=== PATIENT | male | born 1970 | race Caucasian/White ===

== ENCOUNTER 2017-09-17 16:06 | Emergency (ER) | payer MEDICAID ==
[~2017-09-17] VITALS: Ht 185.4 cm; Wt 90.0 kg
[~2017-09-17 16:06] MED LIST: CYCL-36 PO; LORTA5
[2017-09-17 16:35] VITALS: BP 150/91; PULSE 75; RESP 20; TEMP 98.9; O2SAT 98
[2017-09-17 16:52] VITALS: BP 162/86; PULSE 71; RESP 17; O2SAT 98
[2017-09-17] MEDS ORDERED: SODIUM CHLOR 0.9% 1000 ML INJ 1,000 ML IV SCH (17:06)
[2017-09-17] MEDS ORDERED: ONDANSETRON ODT 4 MG TAB PO ONE (17:15)
[2017-09-17] MEDS ORDERED: KETOROLAC TROMETHAMINE 30 MG/ML (IVP) VIAL IV PUSH ONE (17:15)
[2017-09-17] MEDS ORDERED: MORPHINE SULFATE 4 MG/ML INJ IV PUSH ONE (17:15)
[2017-09-17] MEDS ORDERED: SODIUM CHLORIDE 0.9% FLUSH 10 ML FLUSH IV FLUSH PRN (17:15)
--- NOTE | 2017-09-17 17:16 | PD ---
HPI Chief Complaint: Abdominal Pain Time Seen by Provider: 16:55 Travel History International Travel<30 days: No Contact w/Intl Traveler<30days: No Traveled to known affect area: No History of Present Illness HPI 47-year-old male complaining of severe left flank pain right upper quadrant abdominal pain. Patient states the pain started last night. Patient states the pain is sharp pain severe pain started on the left flank area with radiation of the left side abdomen. Patient states that he has intermittent nausea vomiting with the pain. Patient denies any fever chills. Patient states that he has occasional dysuria. Patient denies any history kidney stone in the past. Patient was seen at urgent care center today and had outpatient CT scan abdomen pelvis done at [facility]. CT of the abdomen and pelvis show 3 mm stone mid left ureter with moderate hydronephrosis and hydroureter and finding of likely forniceal rupture with significant retroperitoneal fluid. Patient was advised to go to the emergency room for evaluation. On a scale of 1-10 the pain is a 10. PFSH Past Medical History Medical History: Denies Significant Hx Past Surgical History Surgical History: No Previous Surgery Social History Alcohol Use: No Tobacco Use: No Substance Use: No Allergies-Medications (Allergen,Severity, Reaction): Coded Allergies: No Known Allergies (Verified Adverse Reaction, Unknown, 09/17/17) Reported Meds & Prescriptions Reported Meds & Active Scripts Active Zofran Odt (Ondansetron Odt) 4 Mg Tab 4 Mg SL Q6HR PRN [place] (Hydrocodone-Acetaminophen) 5 Mg-325 Mg Tab 1 Tab PO Q6H PRN Review of Systems General / Constitutional: No: Fever Eyes: No: Visual changes HENT: No: Headaches Cardiovascular: No: Chest Pain or Discomfort Respiratory: No: Shortness of Breath Gastrointestinal: Positive: Nausea, Vomiting, Abdominal Pain Genitourinary: No: Dysuria Musculoskeletal: No: Pain Skin: No Rash Neurologic: No: Weakness Psychiatric: No: Depression Endocrine: No: Polydipsia Hematologic/Lymphatic: No: Easy Bruising Physical Exam Narrative GENERAL: Well-nourished, well-developed patient. SKIN: Focused skin assessment warm/dry. HEAD: Normocephalic. EYES: No scleral icterus. No injection or drainage. NECK: Supple, trachea midline. No JVD or lymphadenopathy. CARDIOVASCULAR: Regular rate and rhythm without murmurs, gallops, or rubs. RESPIRATORY: Breath sounds equal bilaterally. No accessory muscle use. GASTROINTESTINAL: Abdomen soft, nondistended. Patient has moderate tenderness on palpation left upper quadrant of the abdomen. No rebound tenderness. No mass. MUSCULOSKELETAL: No cyanosis, or edema. BACK: Patient has moderate tenderness in palpation left flank area. Neurologic exam normal. Data Data Last Documented VS Vital Signs Date Time Temp Pulse Resp B/P (MAP) Pulse Ox O2 Delivery O2 Flow Rate FiO2 09/17/17 19:24 64 16 110/71 (84) 98 Room Air 09/17/17 16:35 98.9 Orders Orders Complete Blood Count With Diff (09/17/17 17:06) Comprehensive Metabolic Panel (09/17/17 17:06) Prothrombin Time / Inr (Pt) (09/17/17 17:06) Act Partial Throm Time (Ptt) (09/17/17 17:06) Urinalysis - C+S If Indicated (09/17/17 17:06) Iv Access Insert/Monitor (09/17/17 17:06) Ecg Monitoring (09/17/17 17:06) Oximetry (09/17/17 17:06) Sodium Chlor 0.9% 1000 Ml Inj (Ns 1000 M (09/17/17 17:06) Sodium Chloride 0.9% Flush (Ns Flush) (09/17/17 17:15) Morphine Inj (Morphine Inj) (09/17/17 17:15) Ondansetron Odt (Zofran Odt) (09/17/17 17:15) Ketorolac Inj (Toradol Inj) (09/17/17 17:15) Ed Discharge Order (09/17/17 19:41) Labs Laboratory Tests Test 09/17/17 17:15 09/17/17 18:15 White Blood Count 10.6 TH/MM3 Red Blood Count 5.31 MIL/MM3 Hemoglobin 16.0 GM/DL Hematocrit 48.1 % Mean Corpuscular Volume 90.6 FL Mean Corpuscular Hemoglobin 30.2 PG Mean Corpuscular Hemoglobin Concent 33.4 % Red Cell Distribution Width 13.9 % Platelet Count 233 TH/MM3 Mean Platelet Volume 10.0 FL Neutrophils (%) (Auto) 80.1 % Lymphocytes (%) (Auto) 11.5 % Monocytes (%) (Auto) 8.3 % Eosinophils (%) (Auto) 0.0 % Basophils (%) (Auto) 0.1 % Neutrophils # (Auto) 8.5 TH/MM3 Lymphocytes # (Auto) 1.2 TH/MM3 Monocytes # (Auto) 0.9 TH/MM3 Eosinophils # (Auto) 0.0 TH/MM3 Basophils # (Auto) 0.0 TH/MM3 CBC Comment DIFF FINAL Differential Comment Prothrombin Time 10.8 SEC Prothromb Time International Ratio 1.1 RATIO Activated Partial Thromboplast Time 25.0 SEC Blood Urea Nitrogen 16 MG/DL Creatinine 1.42 MG/DL Random Glucose 113 MG/DL Total Protein 7.6 GM/DL Albumin 4.1 GM/DL Calcium Level 9.4 MG/DL Alkaline Phosphatase 89 U/L Aspartate Amino Transf (AST/SGOT) 33 U/L Alanine Aminotransferase (ALT/SGPT) 50 U/L Total Bilirubin 0.9 MG/DL Sodium Level 139 MEQ/L Potassium Level 4.2 MEQ/L Chloride Level 101 MEQ/L Carbon Dioxide Level 28.6 MEQ/L Anion Gap 9 MEQ/L Estimat Glomerular Filtration Rate 53 ML/MIN Urine Color YELLOW Urine Turbidity CLEAR Urine pH 7.0 Urine Specific [place] GREATER THAN 1.050 Urine Protein 100 mg/dL Urine Glucose (UA) NEG mg/dL Urine Ketones 150 mg/dL Urine Occult Blood MOD Urine Nitrite NEG Urine Bilirubin NEG Urine Urobilinogen LESS THAN 2.0 MG/DL Urine Leukocyte Esterase NEG Urine RBC 42 /hpf Urine WBC 2 /hpf Urine Bacteria OCC /hpf Microscopic Urinalysis Comment CULT NOT INDICATED MDM Medical Decision Making Medical Screen Exam Complete: Yes Emergency Medical Condition: Yes Interpretation(s) 1933 PM. CBC within normal limits. Creatinine 1.42. GFR 53. UA positive at 42 RBCs. Differential Diagnosis Differential diagnosis including nephrolithiasis, pyelonephritis. Narrative Course 47-year-old male with severe left flank pain level quadrant abdominal pain. CT shows nephrolithiasis with possible forniceal rupture and retroperitoneal fluid. Diagnosis Primary Impression: Nephrolithiasis Patient Instructions: General Instructions Additional Instructions: Take medication as needed for pain. Follow-up with urologist. Return if intractable pain, fever, persistent vomiting. Med/Other Pt SpecificInfo: Prescription(s) given Scripts Ondansetron Odt (Zofran Odt) 4 Mg Tab 4 MG SL Q6HR Y for Nausea/Vomiting, #12 TAB 0 Refills Prov: Humble Faulkner MD 09/17/17 Hydrocodone-Acetaminophen ([place]) 5 Mg-325 Mg Tab 1 TAB PO Q6H Y for PAIN, #12 TAB 0 Refills Prov: Humble Faulkner MD 09/17/17 Disposition: 01 DISCHARGE HOME Condition: Stable Humble Faulkner MD Sep 17, 2017 17:16
[2017-09-17 18:23] LABS: INTERNATIONAL NORMALIZED RATIO 1.1 RATIO; PROTHROMBIN TIME - PATIENT 10.8 SEC (9.8-11.6)
[2017-09-17 18:42] LABS: ALBUMIN 4.1 GM/DL (3.4-5.0); AST (GOT) 33 U/L (15-37); AUTOMATED NEUTROPHIL # 8.5 TH/MM3 (1.8-7.7); BASOPHIL % 0.1 % (0.0-2.0); BICARBONATE 28.6 MEQ/L (21.0-32.0); BLOOD UREA NITROGEN 16 MG/DL (7-18); CALCIUM 9.4 MG/DL (8.5-10.1); CHLORIDE 101 MEQ/L (98-107); CREATININE 1.42 MG/DL (0.60-1.30); GLOMERULAR FILTRATION RATE 53 ML/MIN (>89); GLUCOSE,RANDOM 113 MG/DL (74-106); HEMATOCRIT 48.1 % (39.0-51.0); LYMPH % 11.5 % (9.0-44.0); LYMPHOCYTE # 1.2 TH/MM3 (1.0-4.8); MEAN CELL VOLUME 90.6 FL (80.0-100.0); MEAN CORPUSCULAR HEMOGLOBIN 30.2 PG (27.0-34.0); MEAN CORPUSCULAR HGB CONC 33.4 % (32.0-36.0); MONO % 8.3 % (0.0-8.0); MONOCYTE # 0.9 TH/MM3 (0-0.9); NEUT % 80.1 % (16.0-70.0); PLATELET COUNT 233 TH/MM3 (150-450); RED BLOOD COUNT 5.31 MIL/MM3 (4.50-5.90); RED CELL DISTRIBUTION WIDTH 13.9 % (11.6-17.2); SODIUM (NA) 139 MEQ/L (136-145); WHITE BLOOD COUNT 10.6 TH/MM3 (4.0-11.0)
[2017-09-17 18:44] LABS: ALT (GPT) 50 U/L (12-78)
[2017-09-17 18:46] LABS: ALKALINE PHOSPHATASE 89 U/L (45-117); TOTAL BILIRUBIN ADULT 0.9 MG/DL (0.2-1.0); TOTAL PROTEIN 7.6 GM/DL (6.4-8.2)
[2017-09-17 19:24] VITALS: BP 110/71; PULSE 64; RESP 16; O2SAT 98
[2017-09-17 19:29] LABS: BACTERIA, URINE OCC /hpf; BILIRUBIN, URINE NEG (NEG); BLOOD, URINE MOD (NEG); GLUCOSE,URINE NEG (NEG); KETONE, URINE 150 mg/dL (NEG); NITRITE,URINE NEG (NEG); URINE COLOR YELLOW (YELLW/STRAW); URINE LEUKOCYTE ESTERASE NEG (NEG)
[2017-09-17] MEDS ORDERED: ZOFR4TAB3 SL (19:39)
[2017-09-17] MEDS ORDERED: NORC5TAB PO (19:39)
== END 2017-09-17 19:55 | disposition home or self-care (01) ==
LOC: NEPE 16:06
DX: N13.2 Hydronephrosis with renal and ureteral calculous obstruction (principal)
CPT/HCPCS: 80053; 81001; 85025; 85610; 85730; 96361; 96374; 96375; 99284; J1885; J2270; J7030

== ENCOUNTER 2017-09-20 19:30 | Inpatient (IN) | payer MEDICAID ==
[~2017-09-20] VITALS: Ht 185.4 cm; Wt 88.9 kg
[~2017-09-20 19:30] MED LIST changes: +NORC5TAB PO; +ZOFR4TAB3 SL
[2017-09-20 19:54] VITALS: BP 166/96; PULSE 66; RESP 16; TEMP 99; O2SAT 99
--- NOTE | 2017-09-20 22:02 | PD ---
HPI Chief Complaint: Flank/Kidney Pain Time Seen by Provider: 21:44 Travel History International Travel<30 days: No Contact w/Intl Traveler<30days: No Traveled to known affect area: No History of Present Illness HPI 47-year-old male with no significant medical history presents emergency department for evaluation of worsening left flank pain with associated nausea and vomiting. Patient was seen and evaluated on the . He had had outpatient imaging at [place] that showed a 3 mm stone mid left ureter with moderate hydronephrosis and hydroureter and finding of likely forniceal rupture with significant retroperitoneal fluid. Lab work was done at that time in the emergency department. He was without acute concern and patient was discharged home with pain control. He states his pain is only gotten worse. It radiates to his testicle. He denies any fever or chills. He states he has been able to void but he feels is decreased secondary to decreased intake. He has no other symptoms to report. [facility] Past Medical History Medical History: Denies Significant Hx Diminished Hearing: No Past Surgical History Surgical History: No Previous Surgery Social History Alcohol Use: No Tobacco Use: No Substance Use: No Allergies-Medications (Allergen,Severity, Reaction): Coded Allergies: No Known Allergies (Verified Adverse Reaction, Unknown, 09/17/17) Reported Meds & Prescriptions Reported Meds & Active Scripts Active Zofran Odt (Ondansetron Odt) 4 Mg Tab 4 Mg SL Q6HR PRN [place] (Hydrocodone-Acetaminophen) 5 Mg-325 Mg Tab 1 Tab PO Q6H PRN Review of Systems Except as stated in HPI: all other systems reviewed are Neg Physical Exam Narrative GENERAL: Well-nourished male patient in no acute distress SKIN: Focused skin assessment warm/dry. HEAD: Atraumatic. Normocephalic. EYES: Pupils equal and round. No scleral icterus. No injection or drainage. ENT: No nasal bleeding or discharge. Mucous membranes pink and moist. NECK: Trachea midline. No JVD. CARDIOVASCULAR: Regular rate and rhythm. No murmur appreciated. RESPIRATORY: No accessory muscle use. Clear to auscultation. Breath sounds equal bilaterally. GASTROINTESTINAL: Abdomen soft, nondistended hepatic and splenic margins not palpable. MUSCULOSKELETAL: No obvious deformities. No clubbing. No cyanosis. No edema. Left CVA tenderness NEUROLOGICAL: Awake and alert. No obvious cranial nerve deficits. Motor grossly within normal limits. Normal speech. PSYCHIATRIC: Appropriate mood and affect; insight and judgment normal. Data Data Last Documented VS Vital Signs Date Time Temp Pulse Resp B/P (MAP) Pulse Ox O2 Delivery O2 Flow Rate FiO2 09/20/17 19:54 99.0 66 16 166/96 (119) 99 Orders Orders Iv Access Insert/Monitor (09/20/17 22:01) Complete Blood Count With Diff (09/20/17 22:01) Basic Metabolic Panel (Bmp) (09/20/17 22:01) Urinalysis - C+S If Indicated (09/20/17 22:01) Ketorolac Inj (Toradol Inj) (09/20/17 22:15) Sodium Chlor 0.9% 1000 Ml Inj (Ns 1000 M (09/20/17 22:15) Ct Abd/Pel W/O Iv Contrast (09/20/17 ) Morphine Inj (Morphine Inj) (09/20/17 23:00) Ondansetron Odt (Zofran Odt) (09/20/17 23:00) Labs Laboratory Tests Test 09/20/17 22:16 White Blood Count 9.0 TH/MM3 Red Blood Count 4.73 MIL/MM3 Hemoglobin 14.5 GM/DL Hematocrit 42.8 % Mean Corpuscular Volume 90.6 FL Mean Corpuscular Hemoglobin 30.6 PG Mean Corpuscular Hemoglobin Concent 33.8 % Red Cell Distribution Width 13.5 % Platelet Count 196 TH/MM3 Mean Platelet Volume 9.2 FL Neutrophils (%) (Auto) 77.1 % Lymphocytes (%) (Auto) 13.3 % Monocytes (%) (Auto) 7.7 % Eosinophils (%) (Auto) 1.2 % Basophils (%) (Auto) 0.7 % Neutrophils # (Auto) 7.0 TH/MM3 Lymphocytes # (Auto) 1.2 TH/MM3 Monocytes # (Auto) 0.7 TH/MM3 Eosinophils # (Auto) 0.1 TH/MM3 Basophils # (Auto) 0.1 TH/MM3 CBC Comment DIFF FINAL Differential Comment MDM Medical Decision Making Medical Screen Exam Complete: Yes Emergency Medical Condition: Yes Medical Record Reviewed: Yes Differential Diagnosis Renal calculi versus renal colic versus UTI versus colitis Narrative Course 47-year-old male presents emergency department for evaluation of worsening left flank pain with associated nausea and vomiting. Patient appears uncomfortable but without distress. He appears nontoxic. He is treated for pain. Laboratory Tests Test 09/20/17 22:16 White Blood Count 9.0 TH/MM3 Red Blood Count 4.73 MIL/MM3 Hemoglobin 14.5 GM/DL Hematocrit 42.8 % Mean Corpuscular Volume 90.6 FL Mean Corpuscular Hemoglobin 30.6 PG Mean Corpuscular Hemoglobin Concent 33.8 % Red Cell Distribution Width 13.5 % Platelet Count 196 TH/MM3 Mean Platelet Volume 9.2 FL Neutrophils (%) (Auto) 77.1 % Lymphocytes (%) (Auto) 13.3 % Monocytes (%) (Auto) 7.7 % Eosinophils (%) (Auto) 1.2 % Basophils (%) (Auto) 0.7 % Neutrophils # (Auto) 7.0 TH/MM3 Lymphocytes # (Auto) 1.2 TH/MM3 Monocytes # (Auto) 0.7 TH/MM3 Eosinophils # (Auto) 0.1 TH/MM3 Basophils # (Auto) 0.1 TH/MM3 CBC Comment DIFF FINAL Differential Comment Blood Urea Nitrogen 13 MG/DL Creatinine 1.27 MG/DL Random Glucose 97 MG/DL Calcium Level 9.0 MG/DL Sodium Level 139 MEQ/L Potassium Level 4.1 MEQ/L Chloride Level 101 MEQ/L Carbon Dioxide Level 26.8 MEQ/L Anion Gap 11 MEQ/L Estimat Glomerular Filtration Rate 61 ML/MIN Patient signed out to my attending physician with urinalysis and can panel pending. Dispositional plan his judgment. Diagnosis Primary Impression: Flank pain Condition: Stable Cammie Mccollum Sep 20, 2017 22:02
[2017-09-20] MEDS ORDERED: KETOROLAC TROMETHAMINE 30 MG/ML (IVP) VIAL IV PUSH ONE (22:15)
[2017-09-20] MEDS ORDERED: SODIUM CHLOR 0.9% 1000 ML INJ 1,000 ML IV ONE (22:15)
[2017-09-20 22:32] LABS: BASOPHIL # 0.1 TH/MM3 (0-0.2); BASOPHIL % 0.7 % (0.0-2.0); EOSINOPHIL # 0.1 TH/MM3 (0-0.4); EOSINOPHIL % 1.2 % (0.0-4.0); HEMATOCRIT 42.8 % (39.0-51.0); HEMOGLOBIN 14.5 GM/DL (13.0-17.0); LYMPH % 13.3 % (9.0-44.0); LYMPHOCYTE # 1.2 TH/MM3 (1.0-4.8); MEAN CELL VOLUME 90.6 FL (80.0-100.0); MEAN CORPUSCULAR HEMOGLOBIN 30.6 PG (27.0-34.0); MEAN CORPUSCULAR HGB CONC 33.8 % (32.0-36.0); MEAN PLATELET VOLUME 9.2 FL (7.0-11.0); MONO % 7.7 % (0.0-8.0); MONOCYTE # 0.7 TH/MM3 (0-0.9); NEUT % 77.1 % (16.0-70.0); PLATELET COUNT 196 TH/MM3 (150-450); RED BLOOD COUNT 4.73 MIL/MM3 (4.50-5.90); RED CELL DISTRIBUTION WIDTH 13.5 % (11.6-17.2)
[2017-09-20 22:49] LABS: BICARBONATE 26.8 MEQ/L (21.0-32.0); CREATININE 1.27 MG/DL (0.60-1.30)
--- NOTE | 2017-09-20 22:51 | RADRPT ---
EXAM DATE: 09/20/2017 10:40 PM EDT AGE/SEX: 47 years / Male INDICATIONS: Left flank pain. CLINICAL DATA: This is the patient's initial encounter. Patient reports that signs and symptoms have been present for 4 - 6 days and indicates a pain score of 7/10. MEDICAL/SURGICAL HISTORY: None. . RADIATION DOSE: 7.44 CTDI (mGy) COMPARISON: No prior exams available for comparison. TECHNIQUE: Multiple contiguous axial images were obtained through the abdomen. Images were obtained using multiple row detector helical technique. Using dose reduction techniques, radiation dose was ke pt as low as reasonably achievable to obtain optimal diagnostic quality images. FINDINGS: There is a 4 mm obstructing calculus in the distal left ureter just above the bladder with mild left- sided hydronephrosis and fairly extensive perinephric and periureteric stranding. There is an additio nal 3 mm nonobstructing calculus in the left kidney as well as left renal cyst. No right-sided renal calculi or obstructive uropathy. Lung bases are clear. No acute findings in the liver, spleen, adrenals or pancreas. No calcified gall stones. No acute bony abnormality. CONCLUSION: 1. Left-sided obstructive uropathy secondary to 4 mm calculus in the distal left ureter with mild le ft-sided hydronephrosis and perinephric and proximal periureteric fluid present. Electronically signed by: Todd Trinidad MD 09/20/2017 10:49 PM EDT
[2017-09-20] MEDS ORDERED: ONDANSETRON ODT 4 MG TAB PO ONE (23:00)
[2017-09-20] MEDS ORDERED: MORPHINE SULFATE 4 MG/ML INJ IV PUSH ONE (23:00)
[2017-09-20 23:05] LABS: BACTERIA, URINE RARE /hpf; BILIRUBIN, URINE NEG (NEG); BLOOD, URINE LARGE (NEG); GLUCOSE,URINE NEG (NEG); KETONE, URINE 20 mg/dL (NEG); MUCUS URINE FEW /lpf (OCC); NITRITE,URINE NEG (NEG); URINE COLOR YELLOW (YELLW/STRAW); URINE LEUKOCYTE ESTERASE NEG (NEG)
[2017-09-21 00:29] VITALS: BP 127/76; PULSE 89; RESP 20; O2SAT 96
[2017-09-21] MEDS ORDERED: LACTULOSE SYRUP 20 GM/30 ML CUP PO PRN (00:30)
[2017-09-21] MEDS ORDERED: SENNOSIDES 8.6 MG TAB PO PRN (00:30)
[2017-09-21] MEDS ORDERED: MAGNESIUM HYDROXIDE SUSP 30 ML CUP PO PRN (00:30)
[2017-09-21] MEDS ORDERED: METOCLOPRAMIDE HCL 10 MG/2 ML VIAL IV PUSH PRN (00:30)
[2017-09-21] MEDS ORDERED: ACETAMINOPHEN 325 MG TAB PO PRN (00:30)
[2017-09-21] MEDS ORDERED: MORPHINE SULFATE 4 MG/ML INJ IV PUSH ONE (00:30)
[2017-09-21] MEDS ORDERED: SODIUM CHLORIDE 0.9% FLUSH 10 ML FLUSH IV FLUSH PRN (00:30)
[2017-09-21] MEDS ORDERED: BISACODYL 10 MG SUPP RECTAL PRN (00:30)
--- NOTE | 2017-09-21 01:02 | HHI.HP ---
HPI Service [facility] Primary Care Physician No Primary Care Physician Admission Diagnosis Obstructiong ureteral calculus Diagnoses: (1) Nephrolithiasis Diagnosis: Principal (2) Hydronephrosis Diagnosis: Principal (3) HTN (hypertension) Diagnosis: Principal Travel History International Travel<30 Days: No Contact w/Intl Traveler <30 Da: No Traveled to Known Affected Are: No History of Present Illness This is a 47-year-old male with no significant PMH who presented to the ER with complaints of left-sided flank pain in addition to nausea and vomiting. Seen at Urgent Care for similar symptoms on 09/17/[address] [facility] which showed 3 mm stone in the mid left ureter, moderate hydronephrosis and hydroureter with likely forniceal rupture, was referred to the ER at that time, s/p analgesics w/ improvement and was d/c'd home. Returns now w/ ongoing c/o flank pain. States pain is severe, constant, 10/10, worse w / movement, no radiating. On arrival, BP 166/96, HR 66, O2 sat 99% on RA, Temp 99.0. CBC unremarkable. Chemistry improved in comparison to previous labs. INR 1.1. UA with hematuria, no acute UTI. CT Abdomen/Pelvis with left-sided obstructive uropathy due to 4 mm stone distal left ureter with mild left-sided hydronephrosis. No previous h/o stones. S/p multiple doses of Morphine in ER w / some improvement. Review of Systems Except as stated in HPI: all other systems reviewed are Neg ROS: 14 point review of systems otherwise negative. Past Family Social History Past Medical History PMH: None Past Surgical History PAST SURGICAL HISTORY: None Allergies: Coded Allergies: No Known Allergies (Verified Allergy, Unknown, 09/21/17) Family History PAST FAMILY HISTORY: Reviewed. No h/o DM or CAD Social History PAST SOCIAL HISTORY: Negative for alcohol, tobacco or drugs per Physical Exam Vital Signs Vital Signs Date Time Temp Pulse Resp B/P (MAP) Pulse Ox O2 Delivery O2 Flow Rate FiO2 09/21/17 00:29 89 20 127/76 (93) 96 Room Air 09/20/17 19:54 99.0 66 16 166/96 (119) 99 Physical Exam PE: GENERAL: Very pleasant middle-aged white male in no acute distress. at bedside HEENT: PERRLA, EOMI. No scleral icterus or conjunctival pallor. No lid lag or facial droop. CARDIOVASCULAR: Regular rate and rhythm. No obvious murmurs to auscultation. No chest tenderness to palpation. RESPIRATORY: No obvious rhonchi or wheezing. Clear to auscultation. Breath sounds equal bilaterally. GASTROINTESTINAL: Abdomen soft, significant left-sided flank tenderness, nondistended. BS normal. MUSCULOSKELETAL: Extremities without clubbing, cyanosis, or edema. No obvious deformities. NEUROLOGICAL: Awake, alert and oriented x4. No focal neurologic deficits. Moving both upper and lower extremities spontaneously. Laboratory Laboratory Tests Test 09/20/17 22:16 White Blood Count 9.0 Red Blood Count 4.73 Hemoglobin 14.5 Hematocrit 42.8 Mean Corpuscular Volume 90.6 Mean Corpuscular Hemoglobin 30.6 Mean Corpuscular Hemoglobin Concent 33.8 Red Cell Distribution Width 13.5 Platelet Count 196 Mean Platelet Volume 9.2 Neutrophils (%) (Auto) 77.1 Lymphocytes (%) (Auto) 13.3 Monocytes (%) (Auto) 7.7 Eosinophils (%) (Auto) 1.2 Basophils (%) (Auto) 0.7 Neutrophils # (Auto) 7.0 Lymphocytes # (Auto) 1.2 Monocytes # (Auto) 0.7 Eosinophils # (Auto) 0.1 Basophils # (Auto) 0.1 CBC Comment DIFF FINAL Differential Comment Urine Color YELLOW Urine Turbidity CLEAR Urine pH 7.0 Urine Specific [place] 1.015 Urine Protein NEG Urine Glucose (UA) NEG Urine Ketones 20 Urine Occult Blood LARGE Urine Nitrite NEG Urine Bilirubin NEG Urine Urobilinogen LESS THAN 2 Urine Leukocyte Esterase NEG Urine RBC 18 Urine WBC 2 Urine Bacteria RARE Urine Mucus FEW Microscopic Urinalysis Comment CULT NOT INDICATED Blood Urea Nitrogen 13 Creatinine 1.27 Random Glucose 97 Calcium Level 9.0 Sodium Level 139 Potassium Level 4.1 Chloride Level 101 Carbon Dioxide Level 26.8 Anion Gap 11 Estimat Glomerular Filtration Rate 61 Result Diagram: 09/20/17221509/20/172215 Caprini VTE Risk Assessment Caprini VTE Risk Assessment: No/Low Risk (score <= 1) Caprini Risk Assessment Model Point Value = 1 Point Value = 2 Point Value = 3 Point Value = 5 Age 41-60 Minor surgery BMI > 25 kg/m2 Swollen legs Varicose veins or History of unexplained or recurrent spontaneous Oral contraceptives or hormone replacement Sepsis (< 1 month) Serious lung disease, including pneumonia (< 1 month) Abnormal pulmonary function Acute myocardial infarction Congestive heart failure (< 1 month) History of inflammatory bowel disease Medical patient at bed rest Age 61-74 Arthroscopic surgery Major open surgery (> 45 min) Laparoscopic surgery (> 45 min) Malignancy Confined to bed (> 72 hours) Immobilizing plaster cast Central venous access Age >= 75 History of VTE Family history of VTE Factor V Leiden Prothrombin [id number] Lupus anticoagulant Anticardiolipin antibodies Elevated serum homocysteine Heparin-induced thrombocytopenia Other congenital or acquired thrombophilia Stroke (< 1 month) Elective arthroplasty Hip, pelvis, or leg fracture Acute spinal cord injury (< 1 month) Prophylaxis Regimen Total Risk Factor Score Risk Level Prophylaxis Regimen 0-1 Low Early ambulation 2 Moderate Order ONE of the following: *Sequential Compression Device (SCD) *Heparin 5000 units SQ BID 3-4 Higher Order ONE of the following medications: *Heparin 5000 units SQ TID *Enoxaparin/Lovenox 40 mg SQ daily (WT < 150 kg, CrCl > 30 mL/min) *Enoxaparin/Lovenox 30 mg SQ daily (WT < 150 kg, CrCl > 10-29 mL/min) *Enoxaparin/Lovenox 30 mg SQ BID (WT < 150 kg, CrCl > 30 mL/min) AND/OR *Sequential Compression Device (SCD) 5 or more Highest Order ONE of the following medications: *Heparin 5000 units SQ TID (Preferred with Epidurals) *Enoxaparin/Lovenox 40 mg SQ daily (WT < 150 kg, CrCl > 30 mL/min) *Enoxaparin/Lovenox 30 mg SQ daily (WT < 150 kg, CrCl > 10-29 mL/min) *Enoxaparin/Lovenox 30 mg SQ BID (WT < 150 kg, CrCl > 30 mL/min) AND *Sequential Compression Device (SCD) Assessment and Plan Problem List: (1) Nephrolithiasis ICD Code: N20.0 - Calculus of kidney Status: Acute (2) Hydronephrosis ICD Code: N13.30 - Unspecified hydronephrosis (3) HTN (hypertension) ICD Code: I10 - Essential (primary) hypertension Assessment and Plan A/P: 1. Renal Stone: outpatient imaging 09/17/17 w/ 3mm stone mid left ureter, c/o ongoing left flank tenderness. CT Abd/Pelvis w/ 4mm left sided obstructive uropathy due to stone in distal left ureter, images reviewed by me. Will Consult Urology for further evaluation/intervention. Flomax, analgesics/ antiemetics as needed. IVF for hydration. 2. Hydronephrosis: secondary to above, CT Abd/Pelvis w/ mild left-sided hydronephrosis due to obstructive uropathy, images reviewed. Continue w/ treatment as above. Monitor I/O. 3. HTN: BP 160's, likely compounded by pain complaints, monitor BP, antihypertensives for BP >180, pain control. 4. DVT Prophylaxis: SCDs/teds. 5. Social work for DC planning as needed. 6. Case discussed at length with the ER physician, lab/record/imaging reviewed by me. Physician Certification 2 Midnight Certification Type: Admission for Inpatient Services Order for Inpatient Services The services are ordered in accordance with Medicare regulations or non- Medicare payer requirements, as applicable. In the case of services not specified as inpatient-only, they are appropriately provided as inpatient services in accordance with the 2-midnight benchmark. Estimated LOS (days): 2 days is the estimated time the patient will need to remain in the hospital, assuming treatment plan goals are met and no additional complications. Post-Hospital Plan: Not yet determined Karina Moser MD Sep 21, 2017 01:02
[2017-09-21] MEDS: SODIUM CHLOR 0.9% 1000 ML INJ 1,000 ML IV SCH ×3 (01:19→21:08)
[2017-09-21 01:43] VITALS: BP 149/76; PULSE 68; RESP 18; TEMP 98.2; O2SAT 95
[2017-09-21] MEDS: MORPHINE SULFATE 4 MG/ML INJ IV PRN ×5 (03:48→19:55)
[2017-09-21] MEDS: TAMSULOSIN HCL 0.4 MG CAP PO SCH (08:29)
[2017-09-21] MEDS: DOCUSATE SODIUM 50 MG/SENNA 8.6 MG TAB PO SCH ×2 (08:29→19:55)
--- NOTE | 2017-09-21 08:40 | HHI.PR ---
Subjective Remarks Follow-up obstructive uropathy. States pain is moving now down to left lower quadrant. Aware to hydrate consult especially several months. Counseled regarding narcotics history of abuse. Objective Vitals Vital Signs Date Time Temp Pulse Resp B/P (MAP) Pulse Ox O2 Delivery O2 Flow Rate FiO2 09/21/17 03:53 18 09/21/17 01:43 98.2 68 18 149/76 (100) 95 09/21/17 00:29 89 20 127/76 (93) 96 Room Air 09/20/17 19:54 99.0 66 16 166/96 (119) 99 I/O 09/20/17 09/20/17 09/20/17 09/21/17 09/21/17 09/21/17 07:00 15:00 23:00 07:00 15:00 23:00 Intake Total 1000 ml Output Total 775 ml Balance 225 ml Intake IV Total 1000 ml Output Urine Total 775 ml # Voids 2 Result Diagram: 09/20/17 2216 09/20/17 2216 Imaging Last Impressions Abdomen/Pelvis CT 09/20/17 0000 Signed Impressions: CONCLUSION: 1. Left-sided obstructive uropathy secondary to 4 mm calculus in the distal le ft ureter with mild left-sided hydronephrosis and perinephric and proximal jocelin ureteric fluid present. Objective Remarks GENERAL: Very pleasant middle-aged white male in no acute distress. HEENT: PERRLA, EOMI. No scleral icterus or conjunctival pallor. No lid lag or facial droop. CARDIOVASCULAR: Regular rate and rhythm. No obvious murmurs to auscultation. No chest tenderness to palpation. RESPIRATORY: No obvious rhonchi or wheezing. Clear to auscultation. Breath sounds equal bilaterally. GASTROINTESTINAL: Abdomen soft, left-sided flank tenderness, nondistended. BS normal. MUSCULOSKELETAL: Extremities without clubbing, cyanosis, or edema. No obvious deformities. NEUROLOGICAL: Awake, alert and oriented x4. No focal neurologic deficits. Moving both upper and lower extremities spontaneously. Procedures none A/P Problem List: (1) Nephrolithiasis ICD Code: N20.0 - Calculus of kidney Status: Acute (2) Hydronephrosis ICD Code: N13.30 - Unspecified hydronephrosis (3) HTN (hypertension) ICD Code: I10 - Essential (primary) hypertension Assessment and Plan 1. Renal Stone: outpatient imaging 09/17/17 w/ 3mm stone mid left ureter, c/o ongoing left flank tenderness. CT Abd/Pelvis w/ 4mm left sided obstructive uropathy due to stone in distal left ureter, images reviewed by me. Stable status post eval recommending medical management. Continue Flomax, analgesics/antiemetics as needed. IVF for hydration. 2. Hydronephrosis: secondary to above, CT Abd/Pelvis w/ mild left-sided hydronephrosis due to obstructive uropathy, images reviewed. Continue w/ treatment as above. Monitor I/O. 3. HTN: BP 160's, likely compounded by pain complaints, monitor BP, antihypertensives for BP >180, pain control. 4. DVT Prophylaxis: SCDs/teds. Discharge Planning Discharge patient to home if pain managed with p.o. medication Condition on discharge: Improved Regular Diet as tolerated Ad Sharmaine activity no driving. Strain all urine Rx written: Flomax Follow-up with primary care physician in Yohan Holloway MD Sep 21, 2017 08:40
[2017-09-21 08:45] VITALS: BP 128/82; PULSE 70; RESP 18; TEMP 97.7; O2SAT 97
[2017-09-21] MEDS: ACETAMINOPHEN/HYDROcodone 325 MG/5 MG TAB PO PRN ×4 (09:30→22:12)
--- NOTE | 2017-09-21 10:46 | PD.CONS ---
HPI Service Urology Consult Requested By Dr. Moser Reason for Consult Left ureteral calculus Primary Care Physician No Primary Care Physician Diagnosis: (1) Nephrolithiasis ICD Code: N20.0 - Calculus of kidney (2) Hydronephrosis ICD Code: N13.30 - Unspecified hydronephrosis (3) HTN (hypertension) ICD Code: I10 - Essential (primary) hypertension History of Present Illness 47-year-old gentleman with no prior urologic history who presented to the emergency room earlier this week with acute onset left flank pain. A CT scan stone protocol was performed that demonstrated a 3 mm mid left ureteral calculus with moderate left hydronephrosis and perinephric stranding consistent with forniceal rupture. Patient was prescribed oral analgesic medication and released. He represented to the emergency room earlier this morning with worsening left-sided flank pain. The CT scan study was repeated which demonstrated migration of the left ureteral calculus down to the distal left ureter. Patient was admitted for analgesic support and a urology consult placed. At the time of consultation, the patient reported that his pain was well managed. He denied hematuria or having any fevers. Patient denied a previous history of nephrolithiasis. Review of Systems Constitutional: DENIES: Fever, Chills Cardiovascular: DENIES: Chest pain Gastrointestinal: COMPLAINS OF: Abdominal pain (Left side) Genitourinary: DENIES: Hematuria Musculoskeletal: COMPLAINS OF: Back pain (Left flank) Except as stated in HPI: all other systems reviewed are Neg Past Family Social History Past Medical History Denies Past Surgical History Denies Reported Medications Refer to EMR Allergies: Coded Allergies: No Known Allergies (Verified Allergy, Unknown, 09/21/17) Active Ordered Medications Refer to EMR Family History Reviewed and noncontributory Social History Denied history of tobacco, alcohol or intravenous drug abuse Physical Exam Vital Signs Date Time Temp Pulse Resp B/P (MAP) Pulse Ox O2 Delivery O2 Flow Rate FiO2 09/21/17 08:45 97.7 70 18 128/82 (97) 97 09/21/17 03:53 18 09/21/17 01:43 98.2 68 18 149/76 (100) 95 09/21/17 00:29 89 20 127/76 (93) 96 Room Air 09/20/17 19:54 99.0 66 16 166/96 (119) 99 Physical Exam GENERAL: This is a well-nourished, well-developed patient, in no apparent distress. SKIN: No rashes, ecchymoses or lesions. Cool and dry. HEAD: Atraumatic. Normocephalic. No temporal or scalp tenderness. EYES: Pupils equal round and reactive. Extraocular motions intact. No scleral icterus. No injection or drainage. ENT: Nose without bleeding, purulent drainage or septal hematoma. Throat without erythema, tonsillar hypertrophy or exudate. Uvula midline. Airway patent. NECK: Trachea midline. No JVD or lymphadenopathy. Supple, nontender, no meningeal signs. CARDIOVASCULAR: Regular rate and rhythm without murmurs, gallops, or rubs. RESPIRATORY: Clear to auscultation. Breath sounds equal bilaterally. No wheezes , rales, or rhonchi. GASTROINTESTINAL: Abdomen soft, non-tender, nondistended. No hepato-splenomegaly , or palpable masses. No guarding. GENITOURINARY: No CVA tenderness, bladder not distended MUSCULOSKELETAL: Extremities without clubbing, cyanosis, or edema. No joint tenderness, effusion, or edema noted. No calf tenderness. Negative Homans sign bilaterally. NEUROLOGICAL: Awake and alert. Cranial nerves II through XII intact. Motor and sensory grossly within normal limits. Five out of 5 muscle strength in all muscle groups. Normal speech. Lab results reviewed: Yes Laboratory Tests Test 09/20/17 22:16 White Blood Count 9.0 Red Blood Count 4.73 Hemoglobin 14.5 Hematocrit 42.8 Mean Corpuscular Volume 90.6 Mean Corpuscular Hemoglobin 30.6 Mean Corpuscular Hemoglobin Concent 33.8 Red Cell Distribution Width 13.5 Platelet Count 196 Mean Platelet Volume 9.2 Neutrophils (%) (Auto) 77.1 Lymphocytes (%) (Auto) 13.3 Monocytes (%) (Auto) 7.7 Eosinophils (%) (Auto) 1.2 Basophils (%) (Auto) 0.7 Neutrophils # (Auto) 7.0 Lymphocytes # (Auto) 1.2 Monocytes # (Auto) 0.7 Eosinophils # (Auto) 0.1 Basophils # (Auto) 0.1 CBC Comment DIFF FINAL Differential Comment Urine Color YELLOW Urine Turbidity CLEAR Urine pH 7.0 Urine Specific [place] 1.015 Urine Protein NEG Urine Glucose (UA) NEG Urine Ketones 20 Urine Occult Blood LARGE Urine Nitrite NEG Urine Bilirubin NEG Urine Urobilinogen LESS THAN 2 Urine Leukocyte Esterase NEG Urine RBC 18 Urine WBC 2 Urine Bacteria RARE Urine Mucus FEW Microscopic Urinalysis Comment CULT NOT INDICATED Blood Urea Nitrogen 13 Creatinine 1.27 Random Glucose 97 Calcium Level 9.0 Sodium Level 139 Potassium Level 4.1 Chloride Level 101 Carbon Dioxide Level 26.8 Anion Gap 11 Estimat Glomerular Filtration Rate 61 Result Diagram: 09/20/17 2216 09/20/17 2216 Personally reviewed images: Yes Imaging Last Impressions Abdomen/Pelvis CT 09/20/17 0000 Signed Impressions: CONCLUSION: 1. Left-sided obstructive uropathy secondary to 4 mm calculus in the distal le ft ureter with mild left-sided hydronephrosis and perinephric and proximal jocelin ureteric fluid present. Assessment and Plan Assessment and Plan Urologic impression: 1. 4 mm left ureteral calculus which has migrated down to the distal ureter 2. Mild left hydronephrosis with forniceal rupture related to passing left ureteral calculus Plan: 1. Continue with analgesic support 2. Flomax 0.4 mg by mouth daily 3. Strain all urine 4. May discharge home once pain adequately controlled with oral medication or if stone passes Omari Santo MD Sep 21, 2017 10:46
[2017-09-21] MEDS: SODIUM CHLORIDE 0.9% FLUSH 10 ML FLUSH IV FLUSH SCH ×2 (10:57→19:55)
[2017-09-21 12:35] VITALS: BP 119/80; PULSE 71; RESP 21; TEMP 97.5; O2SAT 96
[2017-09-21] MEDS ORDERED: TAMS5CAP PO (12:51)
--- NOTE | 2017-09-21 12:52 | HHI.DCPOC ---
Discharge Care Plan Diagnosis: (1) Flank pain Your Health Problems Are: Difficulty with ADL Exercise Tolerance Goals to Promote Your Health * To prevent worsening of your condition and complications * To maintain your health at the optimal level Directions to Meet Your Goals Take your medications as prescribed Follow your dietary instruction Follow activity as directed Keep your appointments as scheduled Take your immunizations and boosters as scheduled If your symptoms worsen call your PCP, if no PCP go to Urgent Care Center or Emergency Room Smoking is Dangerous to Your Health. Avoid second hand smoke Call the 24-hour hour crisis hotline for domestic abuse at Yhoan Holloway MD Sep 21, 2017 12:52
[2017-09-21 16:34] VITALS: BP 119/78; PULSE 73; RESP 18; TEMP 97.5; O2SAT 96
[2017-09-21 20:00] VITALS: BP 123/79; PULSE 78; RESP 18; TEMP 97.1; O2SAT 96
[2017-09-22] VITALS: BP 123/71; PULSE 82; RESP 18; TEMP 97.4; O2SAT 96
[2017-09-22] MEDS: ACETAMINOPHEN/HYDROcodone 325 MG/5 MG TAB PO PRN ×5 (04:37→21:44)
[2017-09-22] MEDS: MORPHINE SULFATE 4 MG/ML INJ IV PRN ×3 (05:37→11:48)
[2017-09-22] MEDS: SODIUM CHLOR 0.9% 1000 ML INJ 1,000 ML IV SCH ×2 (05:40→18:18)
[2017-09-22 07:26] LABS: AUTOMATED NEUTROPHIL # 2.9 TH/MM3 (1.8-7.7); BASOPHIL # 0.1 TH/MM3 (0-0.2); EOSINOPHIL # 0.5 TH/MM3 (0-0.4); HEMATOCRIT 39.6 % (39.0-51.0); HEMOGLOBIN 13.3 GM/DL (13.0-17.0); LYMPH % 28.3 % (9.0-44.0); LYMPHOCYTE # 1.6 TH/MM3 (1.0-4.8); MEAN CELL VOLUME 91.1 FL (80.0-100.0); MEAN CORPUSCULAR HEMOGLOBIN 30.7 PG (27.0-34.0); MEAN CORPUSCULAR HGB CONC 33.7 % (32.0-36.0); MEAN PLATELET VOLUME 9.4 FL (7.0-11.0); MONO % 11.3 % (0.0-8.0); MONOCYTE # 0.6 TH/MM3 (0-0.9); NEUT % 51.4 % (16.0-70.0); PLATELET COUNT 167 TH/MM3 (150-450); RED BLOOD COUNT 4.34 MIL/MM3 (4.50-5.90); RED CELL DISTRIBUTION WIDTH 13.8 % (11.6-17.2); WHITE BLOOD COUNT 5.7 TH/MM3 (4.0-11.0)
[2017-09-22 07:34] LABS: ALT (GPT) 21 U/L (12-78); AST (GOT) 12 U/L (15-37); BICARBONATE 28.4 MEQ/L (21.0-32.0); BLOOD UREA NITROGEN 10 MG/DL (7-18); CALCIUM 8.1 MG/DL (8.5-10.1); CHLORIDE 108 MEQ/L (98-107); CREATININE 0.84 MG/DL (0.60-1.30); GLOMERULAR FILTRATION RATE 98 ML/MIN (>89); GLUCOSE,RANDOM 84 MG/DL (74-106); SODIUM (NA) 143 MEQ/L (136-145)
[2017-09-22 07:35] LABS: ALKALINE PHOSPHATASE 67 U/L (45-117); TOTAL BILIRUBIN ADULT 0.8 MG/DL (0.2-1.0); TOTAL PROTEIN 5.8 GM/DL (6.4-8.2)
[2017-09-22 08:00] VITALS: BP 161/90; PULSE 72; RESP 19; TEMP 97.8; O2SAT 99
[2017-09-22] MEDS: DOCUSATE SODIUM 50 MG/SENNA 8.6 MG TAB PO SCH ×2 (08:45→21:00)
[2017-09-22] MEDS: TAMSULOSIN HCL 0.4 MG CAP PO SCH (08:45)
[2017-09-22] MEDS: SODIUM CHLORIDE 0.9% FLUSH 10 ML FLUSH IV FLUSH SCH ×2 (08:45→21:01)
--- NOTE | 2017-09-22 09:25 | HHI.PR ---
Subjective Remarks F/U urolithiasis. Still requiring IV MSO4 Objective Vitals Vital Signs Date Time Temp Pulse Resp B/P (MAP) Pulse Ox O2 Delivery O2 Flow Rate FiO2 09/22/17 08:00 97.8 72 19 161/90 (113) 99 09/22/17 00:00 97.4 82 18 123/71 (88) 96 09/21/17 20:00 97.1 78 18 123/79 (94) 96 09/21/17 19:02 18 09/21/17 16:34 97.5 73 18 119/78 (92) 96 09/21/17 12:35 97.5 71 21 119/80 (93) 96 I/O 09/21/17 09/21/17 09/21/17 09/22/17 09/22/17 09/22/17 07:00 15:00 23:00 07:00 15:00 23:00 Intake Total 1000 ml 1000 ml 1500 ml Output Total 775 ml 100 ml Balance 225 ml 900 ml 1500 ml Intake Oral 500 ml IV Total 1000 ml 1000 ml 1000 ml Output Urine Total 775 ml 100 ml # Voids 2 Result Diagram: 09/22/17 0546 09/22/17 0546 Imaging Last Impressions Abdomen/Pelvis CT 09/20/17 0000 Signed Impressions: CONCLUSION: 1. Left-sided obstructive uropathy secondary to 4 mm calculus in the distal le ft ureter with mild left-sided hydronephrosis and perinephric and proximal jocelin ureteric fluid present. Objective Remarks GENERAL: Very pleasant middle-aged white male in no acute distress. HEENT: PERRLA, EOMI. No scleral icterus or conjunctival pallor. No lid lag or facial droop. CARDIOVASCULAR: Regular rate and rhythm. No obvious murmurs to auscultation. No chest tenderness to palpation. RESPIRATORY: No obvious rhonchi or wheezing. Clear to auscultation. Breath sounds equal bilaterally. GASTROINTESTINAL: Abdomen soft, left-sided flank tenderness, nondistended. BS normal. MUSCULOSKELETAL: Extremities without clubbing, cyanosis, or edema. No obvious deformities. NEUROLOGICAL: Awake, alert and oriented x4. No focal neurologic deficits. Moving both upper and lower extremities spontaneously. Procedures none A/P Problem List: (1) Nephrolithiasis ICD Code: N20.0 - Calculus of kidney Status: Acute (2) Hydronephrosis ICD Code: N13.30 - Unspecified hydronephrosis (3) HTN (hypertension) ICD Code: I10 - Essential (primary) hypertension Assessment and Plan 1. Renal Stone: outpatient imaging 09/17/17 w/ 3mm stone mid left ureter, c/o ongoing left flank tenderness. CT Abd/Pelvis w/ 4mm left sided obstructive uropathy due to stone in distal left ureter, images reviewed by me. Continues to have significant abdominal pain is scheduling patient for left ureteroscopy with stone extraction tomorrow. C ontinue Flomax, analgesics/ antiemetics as needed. IVF for hydration. 2. Hydronephrosis: secondary to above, CT Abd/Pelvis w/ mild left-sided hydronephrosis due to obstructive uropathy, images reviewed. Continue w/ treatment as above. Monitor I/O. 3. HTN: BP 160's, likely compounded by pain complaints, monitor BP, antihypertensives for BP >180, pain control. 4. DVT Prophylaxis: SCDs/teds. Yohan Holloway MD Sep 22, 2017 09:25
--- NOTE | 2017-09-22 11:35 | HHI.PR ---
Subjective Patient symptoms today Continues to complain of left flank and left lower quadrant pain. Has not passed a stone. Anxious to get resolution. Objective Vital Signs Vital Signs Date Time Temp Pulse Resp B/P (MAP) Pulse Ox O2 Delivery O2 Flow Rate FiO2 09/22/17 10:38 18 09/22/17 08:46 16 09/22/17 08:00 97.8 72 19 161/90 (113) 99 09/22/17 00:00 97.4 82 18 123/71 (88) 96 09/21/17 20:00 97.1 78 18 123/79 (94) 96 09/21/17 16:34 97.5 73 18 119/78 (92) 96 09/21/17 12:35 97.5 71 21 119/80 (93) 96 Intake & Output 09/22/17 09/22/17 06:59 18:59 Intake Total 1500 ml Balance 1500 ml Intake Oral 500 ml IV Total 1000 ml Result Diagram: 09/22/1746 09/22/1746 Objective Remarks Abdomen soft, nondistended, nontender No CVA tenderness Extremities well-perfused, nontender Medications and IVs Current Medications Medications (Trade) Dose Ordered Sig/Veronica Route Start Time Stop Time Status Last Admin Sodium Chloride 1,000 ml @ 100 mls/hr Q10H IV 09/21/17 01:00 09/22/17 05:40 (NS Flush) 2 ml UNSCH PRN IV FLUSH 09/21/17 00:30 (NS Flush) 2 ml BID IV FLUSH 09/21/17 09:00 09/21/17 10:57 (Reglan Inj) 5 mg Q6H PRN IV PUSH 09/21/17 00:30 (Tylenol) 650 mg Q6H PRN PO 09/21/17 00:30 (Celina 5-325 Mg) 1 tab Q4H PRN PO 09/21/17 00:30 09/22/17 09:38 (Morphine Inj) 2 mg Q3H PRN IV 09/21/17 00:45 09/22/17 08:41 (Yeny-Colace) 1 tab BID PO 09/21/17 09:00 09/22/17 08:45 (Milk Of Magnesia Liq) 30 ml Q12H PRN PO 09/21/17 00:30 (Senokot) 17.2 mg Q12H PRN PO 09/21/17 00:30 (Dulcolax Supp) 10 mg DAILY PRN RECTAL 09/21/17 00:30 (Lactulose Liq) 30 ml DAILY PRN PO 09/21/17 00:30 (Flomax) 0.4 mg DAILY PO 09/21/17 09:00 09/22/17 08:45 Assessment and Plan Assessment and Plan Urologic impression: 1. 4 mm left ureteral calculus which has migrated down to the distal ureter 2. Mild left hydronephrosis with forniceal rupture related to passing left ureteral calculus Plan: 1. Continue with analgesic support 2. Flomax 0.4 mg by mouth daily 3. Strain all urine 4. Will place patient on the OR schedule for tomorrow to undergo left ureteroscopy with stone extraction. Omari Santo MD Sep 22, 2017 11:35
[2017-09-22 12:00] VITALS: BP 154/87; PULSE 79; RESP 19; TEMP 98.2; O2SAT 97
[2017-09-22] MEDS: KETOROLAC TROMETHAMINE 30 MG/ML (IVP) VIAL IV PUSH PRN ×2 (14:56→21:01)
[2017-09-22 16:00] VITALS: BP 129/76; PULSE 86; RESP 17; TEMP 97.9; O2SAT 97
[2017-09-22] MEDS ORDERED: LACTATED RINGER'S 1000 ML IV PRN (18:30)
[2017-09-22] MEDS ORDERED: CHLORHEXIDINE GLUCONATE 2 % 1 PACK (2 CLOTHS) TOPICAL PRN (18:30)
[2017-09-22] MEDS ORDERED: SODIUM CHLORID 0.9% 500 ML IV PRN (18:30)
[2017-09-22] MEDS ORDERED: METOPROLOL TARTRATE 25 MG TAB PO PRN (18:30)
[2017-09-22] MEDS ORDERED: POVIDONE IODINE 5% (ANTISEPSIS KIT) 4 APPLICATIONS EACH NARE PRN (18:30)
[2017-09-22 20:00] VITALS: BP 127/75; PULSE 76; RESP 18; TEMP 97.6; O2SAT 98
[2017-09-23] VITALS: BP 127/75; PULSE 80; RESP 18; TEMP 97.9; O2SAT 97
[2017-09-23] MEDS: ACETAMINOPHEN/HYDROcodone 325 MG/5 MG TAB PO PRN ×2 (04:42→20:04)
[2017-09-23] MEDS: SODIUM CHLOR 0.9% 1000 ML INJ 1,000 ML IV SCH ×3 (04:45→17:51)
[2017-09-23 08:00] VITALS: BP 133/85; PULSE 77; RESP 18; TEMP 97.1; O2SAT 97
[2017-09-23] MEDS: SODIUM CHLORIDE 0.9% FLUSH 10 ML FLUSH IV FLUSH SCH ×2 (09:00→20:05)
[2017-09-23] MEDS: TAMSULOSIN HCL 0.4 MG CAP PO SCH (09:11)
[2017-09-23] MEDS: DOCUSATE SODIUM 50 MG/SENNA 8.6 MG TAB PO SCH ×2 (09:12→20:05)
[2017-09-23] MEDS ORDERED: PROPOFOL 200 MG/20 ML AMP IV ONE (10:01)
[2017-09-23] MEDS ORDERED: DEXAMETHASONE SOD PHOS 4 MG/ML VIAL IV ONE (10:01)
[2017-09-23] MEDS ORDERED: LACTATED RINGER'S 1000 ML INJ 1,000 ML IV ONE (10:01)
[2017-09-23] MEDS ORDERED: ePHEDrine/NS 25 MG/5 ML SYRINGE IV ONE (10:01)
[2017-09-23] MEDS ORDERED: ceFAZolin INJ 1,000 MG VIAL IV ONE ×2 (10:01→15:38)
[2017-09-23] MEDS ORDERED: LIDOCAINE HCL 1% PF 5 ML SYRINGE OTHER ONE (10:01)
[2017-09-23] MEDS ORDERED: ONDANSETRON HCL 4 MG/2 ML VIAL IV PUSH ONE (10:01)
[2017-09-23] MEDS ORDERED: ROCURONIUM INJ 50 MG/5 ML SYRINGE IV PUSH ONE (10:01)
--- NOTE | 2017-09-23 10:06 | HHI.PR ---
Subjective Remarks Follow-up obstructive uropathy. Awaiting sx Objective Vitals Vital Signs Date Time Temp Pulse Resp B/P (MAP) Pulse Ox O2 Delivery O2 Flow Rate FiO2 09/23/17 08:00 97.1 77 18 133/85 (101) 97 09/23/17 00:00 97.9 80 18 127/75 (92) 97 09/22/17 20:00 97.6 76 18 127/75 (92) 98 09/22/17 16:00 97.9 86 17 129/76 (93) 97 09/22/17 12:00 98.2 79 19 154/87 (109) 97 09/22/17 10:38 18 I/O 09/22/17 09/22/17 09/22/17 09/23/17 09/23/17 09/23/17 07:00 15:00 23:00 07:00 15:00 23:00 Intake Total 1500 ml 240 ml 1000 ml 1000 ml Output Total 2500 ml 350 ml Balance 1500 ml 240 ml -1500 ml 650 ml Intake Oral 500 ml 240 ml 0 ml IV Total 1000 ml 1000 ml 1000 ml Output Urine Total 2500 ml 350 ml # Bowel Movements 0 2 Result Diagram: 09/22/17 0546 09/22/17 0546 Imaging Last Impressions Abdomen/Pelvis CT 09/20/17 0000 Signed Impressions: CONCLUSION: 1. Left-sided obstructive uropathy secondary to 4 mm calculus in the distal le ft ureter with mild left-sided hydronephrosis and perinephric and proximal jocelin ureteric fluid present. Objective Remarks GENERAL: Very pleasant middle-aged white male in no acute distress. HEENT: PERRLA, EOMI. No scleral icterus or conjunctival pallor. No lid lag or facial droop. CARDIOVASCULAR: Regular rate and rhythm. No obvious murmurs to auscultation. No chest tenderness to palpation. RESPIRATORY: No obvious rhonchi or wheezing. Clear to auscultation. Breath sounds equal bilaterally. GASTROINTESTINAL: Abdomen soft, improved left-sided flank tenderness, nondistended. BS normal. MUSCULOSKELETAL: Extremities without clubbing, cyanosis, or edema. No obvious deformities. NEUROLOGICAL: Awake, alert and oriented x4. No focal neurologic deficits. Moving both upper and lower extremities spontaneously. Procedures For procedure today A/P Problem List: (1) Nephrolithiasis ICD Code: N20.0 - Calculus of kidney Status: Acute (2) Hydronephrosis ICD Code: N13.30 - Unspecified hydronephrosis (3) HTN (hypertension) ICD Code: I10 - Essential (primary) hypertension Assessment and Plan 1. Renal Stone: outpatient imaging 09/17/17 w/ 3mm stone mid left ureter, c/o ongoing left flank tenderness. CT Abd/Pelvis w/ 4mm left sided obstructive uropathy due to stone in distal left ureter, images reviewed by me. Continues to have significant abdominal pain is scheduling patient for left ureteroscopy with stone extraction today. Continue Flomax, analgesics/ antiemetics as needed. IVF for hydration. 2. Hydronephrosis: secondary to above, CT Abd/Pelvis w/ mild left-sided hydronephrosis due to obstructive uropathy, images reviewed. Continue w/ treatment as above. Monitor I/O. 3. HTN: BP 160's, likely compounded by pain complaints, monitor BP, antihypertensives for BP >180, pain control. 4. DVT Prophylaxis: SCDs/teds. Discharge Planning Possible discharge later today pending intervention Yohan Holloway MD Sep 23, 2017 10:06
[2017-09-23 12:00] VITALS: BP 139/87; PULSE 78; RESP 18; TEMP 97.4; O2SAT 98
--- NOTE | 2017-09-23 15:06 | HHI.DS ---
Discharge Summary Admission Date Sep 21, 2017 at 00:27 Discharge Date: Sep 23, 2017 Admitting Diagnosis Obstructiong ureteral calculus (1) Nephrolithiasis ICD Code: N20.0 - Calculus of kidney Status: Acute (2) Hydronephrosis ICD Code: N13.30 - Unspecified hydronephrosis (3) HTN (hypertension) ICD Code: I10 - Essential (primary) hypertension Procedures For procedure 09/23 Brief History - From Admission This is a 47-year-old male with no significant PMH who presented to the ER with complaints of left-sided flank pain in addition to nausea and vomiting. Seen at Urgent Care for similar symptoms on 09/17/[address] Abdomen/Pelvis at [facility] which showed 3 mm stone in the mid left ureter, moderate hydronephrosis and hydroureter with likely forniceal rupture, was referred to the ER at that time, s/p analgesics w/ improvement and was d/c'd home. Returns now w/ ongoing c/o flank pain. States pain is severe, constant, 10/10, worse w / movement, no radiating. On arrival, BP 166/96, HR 66, O2 sat 99% on RA, Temp 99.0. CBC unremarkable. Chemistry improved in comparison to previous labs. INR 1.1. UA with hematuria, no acute UTI. CT Abdomen/Pelvis with left-sided obstructive uropathy due to 4 mm stone distal left ureter with mild left-sided hydronephrosis. No previous h/o stones. S/p multiple doses of Morphine in ER w / some improvement. CBC/BMP: 09/22/17 0546 09/22/17 0546 Significant Findings Laboratory Tests Test 09/20/17 22:16 09/22/17 05:46 Neutrophils (%) (Auto) 77.1 % (16.0-70.0) Urine Occult Blood LARGE (NEG) Urine RBC 18 /hpf (0-3) Urine Bacteria RARE /hpf (NONE) Urine Mucus FEW /lpf (OCC) Estimat Glomerular Filtration Rate 61 ML/MIN (>89) Red Blood Count 4.34 MIL/MM3 (4.50-5.90) Monocytes (%) (Auto) 11.3 % (0.0-8.0) Eosinophils (%) (Auto) 8.0 % (0.0-4.0) Eosinophils # (Auto) 0.5 TH/MM3 (0-0.4) Total Protein 5.8 GM/DL (6.4-8.2) Albumin 3.0 GM/DL (3.4-5.0) Calcium Level 8.1 MG/DL (8.5-10.1) Aspartate Amino Transf (AST/SGOT) 12 U/L (15-37) Chloride Level 108 MEQ/L (98-107) Imaging Last Impressions Abdomen/Pelvis CT 09/20/17 0000 Signed Impressions: CONCLUSION: 1. Left-sided obstructive uropathy secondary to 4 mm calculus in the distal le ft ureter with mild left-sided hydronephrosis and perinephric and proximal jocelin ureteric fluid present. PE at Discharge GENERAL: Very pleasant middle-aged white male in no acute distress. HEENT: PERRLA, EOMI. No scleral icterus or conjunctival pallor. No lid lag or facial droop. CARDIOVASCULAR: Regular rate and rhythm. No obvious murmurs to auscultation. No chest tenderness to palpation. RESPIRATORY: No obvious rhonchi or wheezing. Clear to auscultation. Breath sounds equal bilaterally. GASTROINTESTINAL: Abdomen soft, improved left-sided flank tenderness, nondistended. BS normal. MUSCULOSKELETAL: Extremities without clubbing, cyanosis, or edema. No obvious deformities. NEUROLOGICAL: Awake, alert and oriented x4. No focal neurologic deficits. Moving both upper and lower extremities spontaneously. Hospital Course 1. Renal Stone: outpatient imaging 09/17/17 w/ 3mm stone mid left ureter, c/o ongoing left flank tenderness. CT Abd/Pelvis w/ 4mm left sided obstructive uropathy due to stone in distal left ureter, images reviewed by me. Continues to have significant abdominal pain is scheduling patient for left ureteroscopy with stone extraction today. Continue Flomax, analgesics/ antiemetics as needed. IVF for hydration. 2. Hydronephrosis: secondary to above, CT Abd/Pelvis w/ mild left-sided hydronephrosis due to obstructive uropathy, images reviewed. Continue w/ treatment as above. Monitor I/O. 3. HTN: BP 160's, likely compounded by pain complaints, monitor BP, antihypertensives for BP >180, pain control. 4. DVT Prophylaxis: SCDs/teds. Pt Condition on Discharge: Stable Discharge Disposition: Discharge Home Discharge Time: > 30 minutes Discharge Instructions DIET: Follow Instructions for: As Tolerated, No Restrictions Activities you can perform: Regular-No Restrictions Activities to Avoid: Driving Follow up Referrals: Appointment for Follow Up - 1 Week with Omari Santo MD PCP Follow-up - 1 Week Urology - 1 Week New Medications: Tamsulosin (Flomax) 0.4 Mg Cap 0.4 MG PO DAILY for stone, #15 CAP Continued Medications: Hydrocodone-Acetaminophen ([place]) 5 Mg-325 Mg Tab 1 TAB PO Q6H PRN for PAIN, #12 TAB 0 Refills Ondansetron Odt (Zofran Odt) 4 Mg Tab 4 MG SL Q6HR PRN for Nausea/Vomiting, #12 TAB 0 Refills Yohan Holloway MD Sep 23, 2017 15:06
--- NOTE | 2017-09-23 16:18 | PD.OP ---
Operative Report Date of Surgery: Sep 23, 2017 Preoperative Diagnosis: (1) Ureteral calculus, left Postoperative Diagnosis: (1) Ureteral calculus, left Procedure: Cystoscopy, left retrograde pyelogram, left ureteroscopy with laser lithotripsy and left ureteral catheter placement. Anesthesia: General Surgeon: Omari Santo Page Technician(s): None Operation and Findings: Indication for procedures: Case of a pleasant 47-year-old gentleman with a 4 mm left distal ureteral calculus which has failed to spontaneously pass. Patient presents now for left ureteroscopic stone extraction. Operative procedure in detail: Patient was brought to the operating room suite and placed supine on the OR table. He was then placed under general anesthesia. He was then repositioned in the dorsolithotomy position and prepped and draped in normal sterile fashion. After an appropriate timeout was undertaken, I proceeded with cystoscopic evaluation utilizing the rigid cystoscope with the 20 Greek sheath and the 30 lens. The urethra was patent without stricture formation, the prostatic urethra was not obstructing, further passive cystoscope within the urinary bladder revealed both right and left ureteral orifices to be in correct anatomic position. There was clear drainage on the right and no drainage noted on the left side. A sensor 0.035 wire was then advanced up the left ureter and was negotiated around the distal stone and further advanced up into the left renal pelvis under fluoroscopy. The cystoscope was then removed and the wire secured to a sterile drape with hemostat. The self dilating ureteroscope was then advanced alongside the previously placed wire up to the point of the obstructing stone. The holmium laser with 200 m fiber was then utilized and the stone broken up under direct vision. A couple of the larger stone fragments were then retrieved under direct vision with the 2.4 Greek stone basket and sent off for chemical composition analysis. The ureteroscope was reintroduced and no significantly sized stone particles were left behind. There was some edema and erythema of the distal ureter and thus the decision was made to place an open-ended catheter. The previously placed wire was backloaded through the cystoscope and a 6 Greek open-ended catheter was then advanced over the wire and up the left ureter. The guidewire was then removed and a left retrograde pyelogram study performed to outline the collecting system. The cystoscope was then withdrawn and a 16 Greek 10 cc Live catheter was placed. The open-ended ureteral catheter was then anchored to the Live via a connector. Both catheters were then placed to gravity drainage. The patient tolerated the procedures without complications and was transferred to the PACU in satisfactory condition. Omari Santo MD Sep 23, 2017 16:18
[2017-09-23] MEDS ORDERED: CEPH-459 PO (16:24)
[2017-09-23] MEDS ORDERED: DO NOT ADM ANY ANTICOAGULANT DRUGS PRN (16:25)
[2017-09-23] MEDS ORDERED: ceFAZolin 2 GM/DEX PREMIX 50 ML IV ONE (16:30)
[2017-09-23] MEDS ORDERED: *MEPERIDINE 25 MG INJ VIAL PERIprocedural Use ONLY ONE (16:32)
[2017-09-23] MEDS ORDERED: MIDAZOLAM HCL 2 MG/2 ML VIAL ONE (16:43)
[2017-09-23] MEDS: KETOROLAC TROMETHAMINE 30 MG/ML (IVP) VIAL IV PUSH PRN ×2 (17:51→23:27)
[2017-09-23 20:00] VITALS: BP 140/74; PULSE 93; RESP 17; TEMP 98.2; O2SAT 96
[2017-09-24] VITALS: BP 126/73; PULSE 94; RESP 17; TEMP 98.3; O2SAT 96
[2017-09-24] MEDS: ACETAMINOPHEN/HYDROcodone 325 MG/5 MG TAB PO PRN ×2 (00:06→04:20)
[2017-09-24 04:00] VITALS: BP 125/74; PULSE 95; RESP 17; TEMP 98; O2SAT 95
[2017-09-24] MEDS: SODIUM CHLOR 0.9% 1000 ML INJ 1,000 ML IV SCH (04:31)
[2017-09-24] MEDS: KETOROLAC TROMETHAMINE 30 MG/ML (IVP) VIAL IV PUSH PRN (05:36)
[2017-09-24 08:00] VITALS: BP 145/81; PULSE 94; RESP 19; TEMP 97.9; O2SAT 96
[2017-09-24] MEDS: TAMSULOSIN HCL 0.4 MG CAP PO SCH (08:35)
[2017-09-24] MEDS: DOCUSATE SODIUM 50 MG/SENNA 8.6 MG TAB PO SCH (08:35)
[2017-09-24] MEDS: SODIUM CHLORIDE 0.9% FLUSH 10 ML FLUSH IV FLUSH SCH (08:35)
== END 2017-09-24 10:02 | disposition home or self-care (01) | DRG 669 ==
LOC: NEPC 19:30 → NEDA 09-21 00:27 → N07B 09-21 01:24
PROVIDERS: ADMIT Internal Medicine; ATTEND Internal Medicine
PROC: 0T778DZ Dilation of Left Ureter with Intraluminal Device, Via Natural or Artificial Opening Endoscopic (ICD-10-PCS; 2017-09-23)
PROC: 0T9B70Z Drainage of Bladder with Drainage Device, Via Natural or Artificial Opening (ICD-10-PCS; 2017-09-23)
PROC: 0TC78ZZ Extirpation of Matter from Left Ureter, Via Natural or Artificial Opening Endoscopic (ICD-10-PCS; principal; 2017-09-23 15:00)
DX: N13.2 Hydronephrosis with renal and ureteral calculous obstruction (principal); I10 Essential (primary) hypertension; R10.32 Left lower quadrant pain
CPT/HCPCS: 74176; 74420; 76000; 80048; 80053; 81001; 82365; 82370; 85025; 88300; 96361; 96374; 96375; C1769; J0690; J1100; J1885; J2175; J2250; J2270; J2405; J3010; J7030; J7120